=== PATIENT | female | born 1970 | race Caucasian/White ===

== ENCOUNTER → 2016-11-13 | Outpatient (CLI) | payer OTHER ==
[~2016-11-13] MED LIST: AZEL30SP NAE; B-COTAB18 PO; BNT20 PO; BUPR-79 PO; CERTKIT SC; CHOL100010 PO; CLN200 PO; CYAN3INJ IM; DIPH1TAB98 PO; ETAN50IN2 SQ; LEVO-14 PO; LIDOCAINE PATCHES TOP; MISCCAP80 PO; NRN300 PO; PANT40TA PO; POTA-327 PO; VTMD PO; ZNF4 PO; ZOLP5TAB PO
[2016-11-13 15:38] LABS: BASO % 0.8 %; BASO ABS # 0.05 K/uL (0-0.2); COMPLETE YES; EOS % 1.8 %; HEMATOCRIT 38.6 % (37-47); IG% 0.2 %; LYMPH % 45.6 %; LYMPH ABS # 2.81 K/uL (1.2-3.4); MEAN CELL VOLUME 96.3 fL (80-100); MEAN CORPUSCULAR HEMOGLOBIN 32.9 pg (25-34); MEAN CORPUSCULAR HGB CONC 34.2 g/dl (32-36); MEAN PLATELET VOLUME 9.5 fL (7.4-10.4); MONO % 4.9 %; NEUT % 46.7 %; PLATELET COUNT 265 K/uL (130-400); RED BLOOD COUNT 4.01 M/uL (4.2-5.4); WHITE BLOOD COUNT 6.16 K/uL (4.8-10.8)
[2016-11-13 16:00] LABS: ALT/SGPT 38 U/L (12-78); AST/SGOT 17 U/L (15-37); BLOOD UREA NITROGEN 12 mg/dl (7-18); BUN/CREATININE RATIO 14.1 (10-20); C-REACTIVE PROTEIN 0.66 mg/dl (0-0.29); CALCIUM 9.1 mg/dl (8.5-10.1); CARBON DIOXIDE 27 mmol/L (21-32); CHLORIDE 105 mmol/L (98-107); CREATININE 0.85 mg/dl (0.60-1.20); GLUCOSE 127 mg/dl (70-99); POTASSIUM 3.2 mmol/L (3.5-5.1); SODIUM 138 mmol/L (136-145)
[2016-11-13 16:02] LABS: ALB/GLOB RATIO 1.2 (0.9-2); ALKALINE PHOSPHATASE 68 U/L (45-117)
[2016-11-16 02:25] LABS: IGA SERUM 173 mg/dL (81-463); TIS TRANS IGA 1 U/mL (<4)
== END | disposition home or self-care (01) ==
LOC: C.LAB 14:30
PROVIDERS: ATTEND Registered Nurse
DX: M19.90 Unspecified osteoarthritis, unspecified site (principal)

== ENCOUNTER → 2016-11-20 | Day surgery (SDC) | payer OTHER ==
[2016-11-15 10:09] VITALS: Ht 165.1 cm; Wt 87.3 kg
[~2016-11-20] VITALS: Ht 165.1 cm; Wt 87.3 kg
[~2016-11-20] MED LIST changes: -AZEL30SP NAE; -B-COTAB18 PO; -BNT20 PO; -BUPR-79 PO; -CHOL100010 PO; -CLN200 PO; -DIPH1TAB98 PO; -ETAN50IN2 SQ; -LEVO-14 PO; +LIDOCAINE HCL 2% 2 ML VIAL (20MG/ML) ONE; -MISCCAP80 PO; +PROPOFOL IV EMULSION 10 MG/ML 20 ML VIAL IV ONE; +SODIUM CHLORIDE 0.9% 500ML 500 ML IV ONE; -ZNF4 PO; -ZOLP5TAB PO
--- NOTE | 2016-11-20 08:36 | Endo History and Physical ---
History & Physical Date of Service: Nov 20, 2016. Chief Complaint: chronic diarrhea Referring Physician: Dr. Zane Paige History of Present Illness 46 yo CF who presents for colonoscopy secondary to chronic diarrhea. Past Medical History Arthritis, Gastrointestinal Disorder, Reflux Past Surgical History Hx Cardiac Surgery: No Hx Internal Defibrillator: No Hx Pacemaker: No Hx Abdominal Surgery: Yes ( TUBAL LIGATION, TUBAL REVERSAL, HYSTERECTOMY) Hx of Implantable Prosthesis: No Hx Post-Op Nausea and Vomiting: Yes Hx Cancer Surgery: No Hx Thoracic Surgery: No Hx Orthopedic: Yes (B/L KNEE SCOPE, CERVICAL FUSION, LUMBAR DECOMP/FUSION) Hx Urinary Tract Surgery: No Family History IBD Social History Smoking Status: Current Every Day Smoker Hx Substance Use: No Hx Alcohol Use: Yes (1-4 DRINKS PER WEEK) Allergies Coded Allergies: No Known Allergies (Verified , 11/20/16) Current Medications Reported Home Medications Medications Dose Route/Sig Max Daily Dose Days Date Category [Lidocaine Patches] 1 Patch TOP TID 11/20/16 Reported Cimzia (Certolizumab Pegol) 200 Mg Kit 1 Dose SC MONTHLY 11/15/16 Reported Gabapentin 300 Mg Cap 300 Mg PO TID PRN 02/15/15 Reported Vitamin B-12 Inj (Cyanocobalamin) Inj 1 Ml IM MONTHLY 30 02/15/15 Reported Vitamin D (Ergocalciferol) 50,000 Interunit Cap 50,000 Units PO Sunday02/15/15 Reported Protonix (Pantoprazole Sodium) 40 Mg Tab 40 Mg PO DAILY PRN 02/15/15 Reported Klor-Con (Potassium Chloride) 10 Meq Tabcr 10 Meq PO QAM 02/15/15 Reported Vital Signs Weight (Kilograms): 87.27 Height (Feet): 5 Height (Inches): 5 Date Time Temp Pulse Resp B/P (MAP) Pulse Ox O2 Delivery O2 Flow Rate FiO2 11/20/16 08:10 36.4 85 16 134/75 (94) 94 Room Air Physical Exam General Appearance: WD/WN, no apparent distress Respiratory/Chest: Auscultation: breath sounds normal Cardiovascular: Heart Auscultation: RRR Abdomen: Bowel Sounds: normal Inspection & Palpation: soft, non-distended, no tenderness, guarding & rebound Assessment and Plan Assessment: 46 yo CF who presents for colonoscopy secondary to chronic diarrhea. Plan: Proceed with colonoscopy.
--- NOTE | 2016-11-20 09:06 | Discharge Instructions ---
Endoscopy Patient Instructions Date / Procedure(s) Performed Nov 20, 2016. Colonoscopy Allergy Information Coded Allergies: No Known Allergies (Verified , 11/20/16) Discharge Date / Findings Nov 20, 2016. Random colon biopsies Stool aspirate collected Medication Instructions OK to resume all medications today as prescribed Reported Home Medications Medications Dose Route/Sig Max Daily Dose Days Date Category [Lidocaine Patches] 1 Patch TOP TID 11/20/16 Reported Cimzia (Certolizumab Pegol) 200 Mg Kit 1 Dose SC MONTHLY 11/15/16 Reported Gabapentin 300 Mg Cap 300 Mg PO TID PRN 02/15/15 Reported Vitamin B-12 Inj (Cyanocobalamin) Inj 1 Ml IM MONTHLY 30 02/15/15 Reported Vitamin D (Ergocalciferol) 50,000 Interunit Cap 50,000 Units PO Sunday02/15/15 Reported Protonix (Pantoprazole Sodium) 40 Mg Tab 40 Mg PO DAILY PRN 02/15/15 Reported Klor-Con (Potassium Chloride) 10 Meq Tabcr 10 Meq PO QAM 02/15/15 Reported Provider Instructions Activity Restrictions - No exercising or heavy lifting for 24 hours. - Do not drink alcohol the day of the procedure. - Do not drive a car or operate machinery until the day after the procedure. - Do not make any important decisions or sign important papers in 24 hours after the procedure. Following Day: - Return to full activity which may include returning to work/school. Diet Start your diet with liquids and light foods (jello, soup, juice, toast). Then eat your usual diet if not nauseated. Treatment For Common After Affects For mild abdominal pain, bloating, or excessive gas: - Rest - Eat lightly - Lie on right side Follow-Up Information Follow-up with Dr. Zane Paige as scheduled Anesthesia Information What You Should Know You have had a procedure that required some medicine to reduce anxiety and discomfort. This treatment is called moderate sedation. After receiving the treatment, you may be sleepy, but you will be able to breathe on your own. The effects of the treatment may last for several hours. Follow these instructions along with Activity/Diet recommendations noted above: * Do NOT do anything where dizziness or clumsiness would be dangerous. * Rest quietly at home today, then you can be up and about tomorrow. * Have a responsible person stay with you the rest of today. * You may have had an I.V. today. If so, you may take the dressing off later today. Recommendations Call your doctor if: * Trouble breathing * Continuous vomiting for more than 24 hours * Temperature above 101 degrees * Severe abdominal pain or bloating * Pain not relieved by pain medicine ordered * There is increased drainage or redness from any incision * A large amount of rectal bleeding greater than 2-3 tablespoons. (If you had a polyp/s removed or have hemorrhoids, a small amount of blood - from the rectum is to be expected.) * You have any unanswered questions or concerns. IN THE EVENT OF A SERIOUS EMERGENCY, GO TO THE NEAREST EMERGENCY ROOM Your discharge instructions were prepared by provider García Whitman. Patient Instructions Signature Page Kelley Brito Patient (or Guardian) Signature/Date: I have read and understand the instructions given to me by my caregivers. Caregiver/RN/Doctor Signature/Date: The above-named patient and/or guardian has received patient instructions on this date. + Original Patient Signature Page (only) stays with chart. Please make copy for patient.
[2016-11-20 09:35] VITALS: BP 115/76; PULSE 76; O2SAT 98
--- NOTE | 2016-11-20 09:49 | Anesthesiology Progress Note ---
Anesthesia Post Op Note Date & Time Nov 20, 2016 at 09:49 Vital Signs Pain Intensity: 4 Vital Signs Past 12 Hours Date Time Temp Pulse Resp B/P (MAP) Pulse Ox O2 Delivery O2 Flow Rate FiO2 11/20/16 09:15 74 20 109/63 (78) 97 Room Air 11/20/16 09:00 75 20 116/57 (76) 94 Room Air 11/20/16 08:10 36.4 85 16 134/75 (94) 94 Room Air Notes Mental Status: alert / awake / arousable, participated in evaluation Pt Amnestic to Procedure: Yes Nausea / Vomiting: adequately controlled Pain: adequately controlled Airway Patency, RR, SpO2: stable & adequate BP & HR: stable & adequate Hydration State: stable & adequate Anesthetic Complications: no major complications apparent
--- NOTE | 2016-11-21 00:13 | GI REPORT ---
Procedure Date: 11/20/2016 8:13 AM Procedure: Colonoscopy Indications: Chronic diarrhea Medicines: Monitored Anesthesia Care Complications: No immediate complications. Estimated Blood Loss: Estimated blood loss: none. Procedure: Pre-Anesthesia Assessment: - Prior to the procedure, a History and Physical was performed, and patient medications and allergies were reviewed. The patient's tolerance of previous anesthesia was also reviewed. The risks and benefits of the procedure and the sedation options and risks were discussed with the patient. All questions were answered, and informed consent was obtained. Prior Anticoagulants: The patient has taken no previous anticoagulant or antiplatelet agents. ASA Grade Assessment: II - A patient with mild systemic disease. After reviewing the risks and benefits, the patient was deemed in satisfactory condition to undergo the procedure. After I obtained informed consent, the scope was passed under direct vision. Throughout the procedure, the patient's blood pressure, pulse, and oxygen saturations were monitored continuously. The Scope was introduced through the anus and advanced to the terminal ileum. The colonoscopy was performed without difficulty. The patient tolerated the procedure well. The quality of the bowel preparation was good. The terminal ileum, ileocecal valve, appendiceal orifice, and rectum were photographed. Findings: The colon (entire examined portion) appeared normal. Several random biopsies were obtained with cold forceps for histology in the entire colon. Fluid aspiration for cytology was performed in the entire colon. Impression: - The entire examined colon is normal. - Several random biopsies were obtained in the entire colon. - Fluid aspiration was performed. Recommendation: - Resume previous diet. - Continue present medications. - Repeat colonoscopy for surveillance based on pathology results. - Return to primary care physician as previously scheduled. García Whitman DO 11/20/2016 9:01:36 AM This report has been signed electronically. Note Initiated On: 11/20/2016 8:13 AM I attest to the content of the Intraoperative Record and orders documented therein, exceptions below
== END | disposition home or self-care (01) ==
LOC: C.GI 07:48
PROVIDERS: ATTEND Internal Medicine
DX: K52.831 Collagenous colitis (principal); K21.9 Gastro-esophageal reflux disease without esophagitis; F17.200 Nicotine dependence, unspecified, uncomplicated; Z90.710 Acquired absence of both cervix and uterus; Z98.1 Arthrodesis status